=== PATIENT | female | born 1975 | race American Indian/Alaskan Native ===

== ENCOUNTER 2017-07-28 08:16 | Outpatient (CLI) | payer BC ==
--- NOTE | 2017-07-28 08:35 | XRay Report ---
BILATERAL HAND RADIOGRAPHS INDICATION: Bilateral hand pain. COMPARISON: None similar at this institution. FINDINGS: AP, lateral and oblique bilateral hand radiographs demonstrate normal bones, joints and soft tissues. CONCLUSION: No acute radiographic abnormality. Thank you for the opportunity to participate in this patient's care.
== END 2017-07-28 08:17 | disposition home or self-care (01) ==
LOC: SPVIMAG 08:16
PROVIDERS: ATTEND Orthopaedic Surgery
DX: M79.642 Pain in left hand (principal); M79.641 Pain in right hand

== ENCOUNTER 2020-11-11 15:40 | Outpatient (CLI) | payer BC ==
--- NOTE | 2020-11-11 18:26 | Ultrasound Report ---
US abdomen limited INDICATION / CLINICAL INFORMATION: CHRONIC ABDOMINAL PAIN/BLOATING. COMPARISON: None available. FINDINGS: The gallbladder is normal without evidence of cholelithiasis. Common bile duct is normal measuring 3 mm. Visualized portions of the liver, right kidney, pancreas and aorta are normal. IMPRESSION: Negative exam Signer Name: Luis Park MD FACR Signed: 11/11/2020 6:21 PM Workstation Name: [id number] ([id number]
== END 2020-11-11 15:41 | disposition home or self-care (01) ==
LOC: SPVWC 15:40
PROVIDERS: ATTEND Internal Medicine Gastroenterology
DX: R14.0 Abdominal distension (gaseous) (principal); R10.9 Unspecified abdominal pain
CPT/HCPCS: 76705